=== PATIENT | male | born 1965 | race African-American/Black ===

== ENCOUNTER 2017-06-30 20:50 | Inpatient (IN) | payer MEDICAID ==
[~2017-06-30] VITALS: Ht 177.8 cm; Wt 81.6 kg
[2017-06-30] MEDS ORDERED: MORPHINE SULFATE 4 MG/ML CPJ (NOT FOR IM USE) IV STA (21:33)
[2017-06-30] MEDS ORDERED: ONDANSETRON HCL 4MG/2ML VIAL IV STA (21:33)
[2017-06-30] MEDS ORDERED: SODIUM CHLORIDE 0.9% 1,000 ML IV ONE ×2 (21:33→23:59)
[2017-06-30 22:10] LABS: BASOPHILS % 0.2 % (0.0-2.0); HEMOGLOBIN. 14.1 g/dL (14.0-18.0); LYMPHOCYTES % 8.4 % (20.0-50.0); MEAN CORPUSCULAR VOLUME 93.4 fL (80.0-94.0); MEAN PLATELET VOLUME 9.7 fl (7.4-10.4); MONOCYTES % 5.6 % (2.0-8.0); NEUTROPHILS % 84.8 % (40.0-76.0); PLATELET 234 x1000/uL (130-400); RED BLOOD CELL COUNT 4.28 mill/uL (4.7-6.1); RED CELL DISTRIBUTION WIDTH 13.7 % (11.6-14.6)
[2017-06-30 22:15] LABS: INR 1.1; PROTHROMBIN TIME 11.4 sec (9.4-11.6)
[2017-06-30 22:19] LABS: CARBON DIOXIDE 23 mEq/L (21-32); CHLORIDE 107 mEq/L (98-107)
[2017-06-30 22:21] LABS: TROPONIN I 0.03 ng/mL (0.00-0.04)
[2017-06-30 23:22] LABS: CLARITY URINE CLEAR (CLEAR); COLOR URINE YELLOW (YELLOW); GLUCOSE URINE NEGATIVE (NEGATIVE); KETONES URINE NEGATIVE (NEGATIVE); LEUKOCYTE ESTERASE URINE NEGATIVE (NEGATIVE); NITRITE URINE NEGATIVE (NEGATIVE); OCCULT BLOOD URINE NEGATIVE (NEGATIVE); PH URINE >=9.0 (4.5-8.0); PROTEIN URINE 2+ (NEGATIVE); UROBILINOGEN URINE 0.2 E.U./dL (0.2-1.0)
[2017-06-30] MEDS ORDERED: MORPHINE SULFATE 4 MG/ML CPJ (NOT FOR IM USE) IV ONE (23:45)
[2017-06-30] MEDS ORDERED: POTASSIUM CHLORIDE 20MEQ TABLET SR PO ONE (23:45)
[2017-06-30] MEDS ORDERED: HYDRALAZINE HCL 50MG TABLET PO ONE (23:45)
[2017-07-01] MEDS ORDERED: ONDANSETRON HCL 4MG/2ML VIAL IV ONE
[2017-07-01] MEDS ORDERED: HYDRALAZINE 20MG/ML VIAL IV ONE (00:15)
[2017-07-01] MEDS ORDERED: LORAZEPAM 2MG/ML CPJ IV PRN (00:30)
[2017-07-01] MEDS ORDERED: MORPHINE SULFATE 2 MG/ML CPJ (NOT FOR IM USE) IV PRN ×2 (00:30)
[2017-07-01] MEDS ORDERED: ONDANSETRON HCL 4MG/2ML VIAL IV PRN (00:30)
[2017-07-01] MEDS ORDERED: ACETAMINOPHEN 325MG TABLET PO PRN (00:30)
[2017-07-01] MEDS ORDERED: IPRATROPIUM/ALBUTEROL 0.5-3(2.5)MG/3ML NEB INH PRN (00:30)
[2017-07-01] MEDS ORDERED: AMLODIPINE 10MG TABLET PO SCH ×2 (00:30→09:00)
[2017-07-01] MEDS ORDERED: DOCUSATE SODIUM 100MG CAPSULE PO PRN (00:30)
[2017-07-01] MEDS ORDERED: DIPHENHYDRAMINE 50MG/ML VIAL IV PRN (00:30)
[2017-07-01] MEDS ORDERED: CLONIDINE 0.1MG TABLET PO PRN (00:30)
[2017-07-01 01:12] LABS: BG BASE EXCESS 1.9 mmol/L (-2.0-2.0); BG CARBOXYHEMOGLOBIN 0.7 % (0.5-1.5); BG DEOXYHEMOGLOBIN 2.1 % (0.0-5.0); BG FRACTION INSPIRED OXYGEN 21; BG HCO3 ACT 21.4 mmol/L (22.0-26.0); BG METHEMOGLOBIN 0.3 % (0.0-1.5); BG OXYGEN SATURATION 97.9 % (92.0-98.5); BG OXYHEMOGLOBIN 96.9 % (94.0-97.0); BG PCO2 22.3 mmHg (35.0-45.0); BG PO2 94.5 mmHg (75.0-100.0); BG SAMPLE SITE RIGHT RADIAL; BG TOTAL HEMOGLOBIN 14.8 g/dL (12.0-18.0); BG VENT MODE ROOM AIR
[2017-07-01] MEDS ORDERED: SODIUM CHLORIDE 0.9% 500 ML IV ONE (05:54)
[2017-07-01 06:00] VITALS: BP 121/75
[2017-07-01] MEDS ORDERED: DEXT 5%/0.45% NACL KCL 20MEQ/L 1,000 ML IV SCH (07:00)
[2017-07-01] MEDS ORDERED: POTASSIUM CHLORIDE INJ 40 MEQ in DEXT 5% WATER 500 ML IV NR (07:00)
[2017-07-01 07:56] VITALS: BP 148/99
[2017-07-01] MEDS ORDERED: LEVOFLOXACIN 500MG PREMIX 100 ML IV SCH (08:00)
[2017-07-01] MEDS: METRONIDAZOLE 500 MG PREMIX 100 ML IV SCH ×2 (08:11→14:00)
[2017-07-01] MEDS ORDERED: PANTOPRAZOLE SODIUM 40 MG/VIAL IV SCH (09:00)
[2017-07-01] MEDS: HYDROCODONE/ACETAMINOPHEN 10/325MG TABLET PO PRN ×2 (09:19→16:37)
[2017-07-01 10:49] LABS: CREATINE KINASE MB FRACTION 1.5 ng/mL (0.5-3.6); TROPONIN I 0.07 ng/mL (0.00-0.04)
[2017-07-01 12:00] VITALS: BP 146/92
[2017-07-01 12:39] LABS: CLARITY URINE CLEAR (CLEAR); COLOR URINE DARK YELLOW (YELLOW); GLUCOSE URINE NEGATIVE (NEGATIVE); KETONES URINE TRACE (NEGATIVE); LEUKOCYTE ESTERASE URINE NEGATIVE (NEGATIVE); NITRITE URINE NEGATIVE (NEGATIVE); OCCULT BLOOD URINE NEGATIVE (NEGATIVE); PH URINE 5.5 (4.5-8.0); PROTEIN URINE 1+ (NEGATIVE); SPECIFIC GRAVITY URINE 1.022 (1.005-1.030)
[2017-07-01 12:50] LABS: *AMPHETAMINES SCREEN URINE NEGATIVE (NEGATIVE); *BARBITURATES SCREEN URINE NEGATIVE (NEGATIVE); *BENZODIAZEPINES SCREEN URINE NEGATIVE (NEGATIVE); *COCAINE SCREEN URINE NEGATIVE (NEGATIVE); CANNABINOID URINE SCREEN PRESUMTIVE POSITIVE (NEGATIVE); METHADONE URINE SCREEN NEGATIVE (NEGATIVE); OPIATES URINE SCREEN PRESUMTIVE POSITIVE (NEGATIVE); PHENCYCLIDINE URINE SCREEN NEGATIVE (NEGATIVE)
[2017-07-01] MEDS ORDERED: NIFE30TA83 PO (13:51)
[2017-07-01] MEDS ORDERED: LEVO500T2 PO (13:51)
[2017-07-01 15:29] LABS: HEMATOCRIT 39.2 % (42.0-52.0); HEMOGLOBIN 13.6 g/dL (14.0-18.0); MEAN CORPUSCULAR VOLUME 95.2 fL (80.0-94.0); PLATELET 213 x1000/uL (130-400); RED BLOOD CELL COUNT 4.12 mill/uL (4.7-6.1); RED CELL DISTRIBUTION WIDTH 13.9 % (11.6-14.6)
[2017-07-01 15:54] LABS: CARBON DIOXIDE 27 mEq/L (21-32); CHLORIDE 101 mEq/L (98-107); CREATINE KINASE 150 IU/L (39-308); CREATINE KINASE MB FRACTION 1.8 ng/mL (0.5-3.6); TROPONIN I 0.07 ng/mL (0.00-0.04)
[2017-07-01 16:00] VITALS: BP 153/102
[2017-07-01 16:24] VITALS: BP 146/92
[2017-07-01 16:37] VITALS: BP 146/92
[2017-07-02] MEDS ORDERED: NIFEDIPINE XL 30MG TAB PO SCH (09:00)
== END 2017-07-01 17:00 | disposition home or self-care (01) | DRG 463 ==
LOC: ER 20:50 → 7WST 07-01 00:17 → ENRESERV 07-01 04:49
PROVIDERS: ADMIT Internal Medicine; ATTEND Internal Medicine
DX: N39.0 Urinary tract infection, site not specified (principal); N17.9 Acute kidney failure, unspecified; R65.10 Systemic inflammatory response syndrome (SIRS) of non-infectious origin without acute organ dysfunction; I10 Essential (primary) hypertension; F17.210 Nicotine dependence, cigarettes, uncomplicated; I25.10 Atherosclerotic heart disease of native coronary artery without angina pectoris; F15.90 Other stimulant use, unspecified, uncomplicated; R10.9 Unspecified abdominal pain; Z88.0 Allergy status to penicillin; Z91.018 Allergy to other foods; Z72.89 Other problems related to lifestyle; Z91.14 Patient's other noncompliance with medication regimen; I16.9 Hypertensive crisis, unspecified
CPT/HCPCS: 36415; 36600; 74176; 80053; 80305; 81001; 82375; 82550; 82553; 82805; 83690; 84484; 85025; 85027; 85610; 87040; 93005; 96361; 96374; 96375; 96376; 99285; C9113; J0360; J1956; J2270; J2405; J3480; J3490; J7030; J7050; J7060

== ENCOUNTER 2020-07-03 06:15 | Emergency (ER) | payer MEDICAID ==
[~2020-07-03] VITALS: Ht 172.7 cm; Wt 82.0 kg
[~2020-07-03 06:15] MED LIST: LEVO500T2 PO; NIFE30TA83 PO
[2020-07-03 07:10] LABS: CHLORIDE 106 mEq/L (98-107)
[2020-07-03] MEDS ORDERED: KCL 10MEQ/50ML PREMIX 50 ML IV SCH (07:30)
[2020-07-03] MEDS ORDERED: POTASSIUM CHLORIDE 20MEQ TABLET SR PO SCH (07:30)
[2020-07-03 07:47] LABS: BASOPHILS % 0.7 % (0.0-2.0); EOSINOPHILS % 1.8 % (0.0-5.0); HEMATOCRIT. 41.8 % (42.0-52.0); HEMOGLOBIN. 15.2 g/dL (14.0-18.0); LYMPHOCYTES % 23.9 % (20.0-50.0); MEAN CORPUSCULAR HEMOGLOBIN 34.9 pg (28.0-32.0); MEAN CORPUSCULAR VOLUME 95.9 fL (80.0-94.0); MEAN PLATELET VOLUME 10.3 fl (7.4-10.4); MONOCYTES % 8.6 % (2.0-8.0); PLATELET 166 x1000/uL (130-400); RED BLOOD CELL COUNT 4.36 mill/uL (4.7-6.1); RED CELL DISTRIBUTION WIDTH 13.2 % (11.6-14.6)
[2020-07-03] MEDS ORDERED: IBUPROFEN 400MG TABLET PO NR (08:30)
[2020-07-03 09:05] VITALS: BP 162/112
== END 2020-07-03 11:32 | disposition home or self-care (01) ==
LOC: ER 06:15
DX: F41.1 Generalized anxiety disorder (principal); R07.89 Other chest pain; K08.89 Other specified disorders of teeth and supporting structures; E87.6 Hypokalemia; F12.10 Cannabis abuse, uncomplicated; F41.9 Anxiety disorder, unspecified; I10 Essential (primary) hypertension; Z91.14 Patient's other noncompliance with medication regimen; Z91.018 Allergy to other foods; Z88.0 Allergy status to penicillin
CPT/HCPCS: 36415; 71045; 80053; 83735; 83880; 84484; 85025; 93005; 96365; 99285; J3480

== ENCOUNTER 2023-04-30 00:46 | Emergency (ER) | payer MEDICAID ==
[~2023-04-30] VITALS: Ht 177.8 cm; Wt 81.0 kg
[2023-04-30 00:50] VITALS: BP 168/100; PULSE 66; RESP 18; TEMP 98.9; O2SAT 99
[2023-04-30] MEDS ORDERED: HALOPERIDOL LACTATE 5MG/ML VIAL IM ONE (01:00)
[2023-04-30 01:50] LABS: HEMATOCRIT. 43.9 % (42.0-52.0); HEMOGLOBIN. 15.1 g/dL (14.0-18.0); MEAN CORPUSCULAR HEMOGLOBIN 34.2 pg (28.0-32.0); MEAN CORPUSCULAR VOLUME 99.6 fL (80.0-94.0); MEAN PLATELET VOLUME 10.9 fl (7.4-10.4); PLATELET 147 x1000/uL (130-400); RED BLOOD CELL COUNT 4.41 mill/uL (4.7-6.1); RED CELL DISTRIBUTION WIDTH 13.9 % (11.6-14.6)
[2023-04-30 01:54] LABS: CHLORIDE 109 mEq/L (98-107)
[2023-04-30 02:05] LABS: INR 1.1; PROTHROMBIN TIME 11.4 sec (9.6-11.0)
[2023-04-30 02:39] LABS: PLATELET ESTIMATE NORMAL
[2023-04-30] MEDS ORDERED: LEVO750T68 MT (05:25)
== END 2023-04-30 05:42 | disposition home or self-care (01) ==
LOC: ER 00:46
DX: J18.9 Pneumonia, unspecified organism (principal); K85.90 Acute pancreatitis without necrosis or infection, unspecified; I10 Essential (primary) hypertension; Z88.0 Allergy status to penicillin; Z68.25 Body mass index [BMI] 25.0-25.9, adult
CPT/HCPCS: 80053; 83690; 85025; 85610; 36415; 74176; 96372; 99285; J1630; Z7610